=== PATIENT | female | born 1960 | race Caucasian/White ===

== ENCOUNTER → 2016-07-21 | Outpatient (CLI) | payer BC ==
--- NOTE | 2016-07-21 14:14 | MM ---
Reason for exam: additional evaluation requested from prior study. Last mammogram was performed 7 months ago. History: Patient is postmenopausal and has history of other cancer at age 45. Family history of breast cancer in mother at age 62. Reductions of both breasts, November 2006. Physical Findings: Nurse did not find any significant physical abnormalities on exam. MG 3D Diag Mammo W/Cad LT CC and MLO view(s) were taken of the left breast. Prior study comparison: December 17, 2015, bilateral MG 3d diag mammo w/cad CLARISSE. October 02, 2015, left breast MG diagnostic mammo LT w CAD. The breast tissue is heterogeneously dense. This may lower the sensitivity of mammography. There is no discrete abnormality including previous posterior left MLO. No significant new findings when compared with previous films. These results were verbally communicated with the patient and result sheet given to the patient on 07/21/16. ASSESSMENT: Benign, BI-RAD 2 RECOMMENDATION: Routine screening mammogram of both breasts in 5 months. Back on schedule.
== END | disposition home or self-care (01) ==
LOC: RADMAMWWP 12:47
PROVIDERS: ATTEND Obstetrics & Gynecology
DX: R92.8 Other abnormal and inconclusive findings on diagnostic imaging of breast (principal)
CPT/HCPCS: G0206; G0279

== ENCOUNTER → 2017-09-20 | Outpatient (CLI) | payer BC ==
--- NOTE | 2017-09-21 10:10 | MM ---
Reason for exam: screening (asymptomatic). Last mammogram was performed 1 year and 2 months ago. History: Patient is postmenopausal and has history of other cancer at age 45. Family history of breast cancer in mother at age 62. Reductions of both breasts, November 2006. Physical Findings: A clinical breast exam by your physician is recommended on an annual basis and results should be correlated with mammographic findings. MG Screening Mammo w CAD Bilateral CC and MLO view(s) were taken. Prior study comparison: July 21, 2016, left breast MG 3d diag mammo w/cad LT. December 17, 2015, bilateral MG 3d diag mammo w/cad CLARISSE. The breast tissue is heterogeneously dense. This may lower the sensitivity of mammography. There is no discrete abnormality. No significant changes when compared with prior studies. ASSESSMENT: Negative, BI-RAD 1 RECOMMENDATION: Routine screening mammogram of both breasts in 1 year.
== END | disposition home or self-care (01) ==
LOC: RADMAMWWP 16:12
PROVIDERS: ATTEND Obstetrics & Gynecology
DX: Z12.31 Encounter for screening mammogram for malignant neoplasm of breast (principal)
CPT/HCPCS: 77067

== ENCOUNTER → 2018-11-29 | Outpatient (CLI) | payer BC ==
--- NOTE | 2018-12-03 09:21 | MM ---
Reason for exam: screening (asymptomatic). Last mammogram was performed 1 year and 2 months ago. History: Patient is postmenopausal and has history of other cancer at age 45. Family history of breast cancer in mother at age 62. Reductions of both breasts, November 2006. Physical Findings: A clinical breast exam by your physician is recommended on an annual basis and results should be correlated with mammographic findings. MG Screening Mammo w CAD Bilateral CC and MLO view(s) were taken. Prior study comparison: September 20, 2017, bilateral MG screening mammo w CAD. July 21, 2016, left breast MG 3d diag mammo w/cad LT. The breast tissue is heterogeneously dense. This may lower the sensitivity of mammography. Bilateral mammoplasty changes. Nodular asymmetry lateral left breast centrally appears more defined. ASSESSMENT: Incomplete: need additional imaging evaluation, BI-RAD 0 RECOMMENDATION: Special view mammogram of the left breast. (3D) If lesion persists on supplemental views, image directed ultrasound is recommended. [facility] will attempt to contact patient to return for supplemental views and ultrasound if indicated.
== END | disposition home or self-care (01) ==
LOC: RADMAMWWP 07:44
PROVIDERS: ATTEND Obstetrics & Gynecology
DX: Z12.31 Encounter for screening mammogram for malignant neoplasm of breast (principal); Z80.3 Family history of malignant neoplasm of breast
CPT/HCPCS: 77067

== ENCOUNTER → 2018-12-05 | Outpatient (CLI) | payer BC ==
--- NOTE | 2018-12-05 11:00 | MM ---
Reason for exam: additional evaluation requested from abnormal screening. Last mammogram was performed less than 1 month ago. History: Patient is postmenopausal and has history of other cancer at age 45. Family history of breast cancer in mother at age 62. Reductions of both breasts, November 2006. Physical Findings: Nurse did not find any significant physical abnormalities on exam. MG 3D Work Up W/Cad LT Spot compression CC, spot compression MLO, and LM view(s) were taken of the left breast. Prior study comparison: November 29, 2018, bilateral MG screening mammo w CAD. September 20, 2017, bilateral MG screening mammo w CAD. The breast tissue is heterogeneously dense. This may lower the sensitivity of mammography. There is a persistent 5mm mass 1-2 o'clock, 6-7cm from nipple. These results were verbally communicated with the patient and result sheet given to the patient on 12/05/18. ASSESSMENT: Incomplete: need additional imaging evaluation, BI-RAD 0 RECOMMENDATION: Ultrasound of the left breast. (upper outer quadrant)
--- NOTE | 2018-12-05 11:02 | USB ---
Reason for exam: additional evaluation requested from abnormal screening. History: Patient is postmenopausal and has history of other cancer at age 45. Family history of breast cancer in mother at age 62. Reductions of both breasts, November 2006. US Breast Workup Limited LT Left limited breast ultrasound including focal area of concern, retroareolar and axilla demonstrates a 0.4 x 0.5 x 0.3cm mixed, hypoechoic lesion at 1 o'clock, corresponds with mammographic finding, biopsy recommended. These results were verbally communicated with the patient and result sheet given to the patient on 12/05/18. ASSESSMENT: Suspicious, BI-RAD 4 RECOMMENDATION: Ultrasound core biopsy of the left breast. Patient requests information be sent to her physicians and chooses to go to [facility] for her surgical consult and biopsy.
== END | disposition home or self-care (01) ==
LOC: RADMAMWWP 08:52
PROVIDERS: ATTEND Obstetrics & Gynecology
DX: R92.8 Other abnormal and inconclusive findings on diagnostic imaging of breast (principal)
CPT/HCPCS: 77061; 77065

== ENCOUNTER → 2024-01-01 | Outpatient (CLI) | payer BC ==
[2024-01-01 14:05] LABS: INR 0.9 (<1.2); Partial Thromboplastin Time 25.2 sec (22.0-30.0); Prothrombin Time 10.3 sec (10.0-12.5)
[2024-01-01 19:53] LABS: HCT 37.8 % (37.2-46.3); HGB 12.2 g/dL (12.0-15.0); MCH 29.7 pg (27.0-32.0); MCHC 32.3 g/dL (32.0-37.0); Mean Platelet Volume 10.4 FL (9.5-12.2); NRBC Per 100 WBC 0 X 10*3/uL (0.00-0.01); Platelet Count 223 X 10*3/uL (140-440); RBC 4.11 X 10*6/uL (4.10-5.20); RDW 13.2 % (11.5-14.5); WBC 4.07 X 10*3/uL (4.50-10.00)
[2024-01-01 20:01] LABS: ALT 18 U/L (8-44); AST 19 U/L (13-35); Albumin 4.6 g/dL (3.8-4.9); Albumin/Globulin Ratio 2.19 Ratio (1.60-3.17); Alkaline Phosphatase 80 U/L (41-126); Calcium 9.6 mg/dL (8.7-10.3); Carbon Dioxide 24.4 mmol/L (21.6-31.8); Chloride 104 mmol/L (96-109); Globulin 2.1 g/dL (1.6-3.3); Glucose 95 mg/dL (70-110); Potassium 3.9 mmol/L (3.5-5.5); Sodium 141 mmol/L (135-145); Total Bilirubin 0.4 mg/dL (0.3-1.2); Total Protein 6.7 g/dL (6.2-8.2)
== END | disposition home or self-care (01) ==
LOC: LABWHC1 13:16
PROVIDERS: ATTEND Orthopaedic Surgery
DX: Z01.812 Encounter for preprocedural laboratory examination (principal); M16.12 Unilateral primary osteoarthritis, left hip; Z22.322 Carrier or suspected carrier of Methicillin resistant Staphylococcus aureus
CPT/HCPCS: 36415; 80053; 85027; 85610; 85730; 86850; 86900; 86901; 87070

== ENCOUNTER 2024-01-09 05:00 | Inpatient (IN) | payer BC ==
[2024-01-05 11:19] VITALS: BMI 32.1
[2024-01-09] MEDS ORDERED: ACETAMINOPHEN TAB 500 MG TAB ONE (06:42)
[2024-01-09] MEDS ORDERED: DEXAMETHASONE SOD PHOSPHATE 4 MG/ML 1 ML VIAL ONE (06:43)
[2024-01-09] MEDS ORDERED: MIDAZOLAM 2 MG/2 ML VIAL ONE (06:43)
[2024-01-09] MEDS ORDERED: ONDANSETRON 4 MG/2 ML VIAL ONE (06:43)
[2024-01-09] MEDS ORDERED: MELOXICAM 7.5 MG TAB ONE (06:43)
[2024-01-09] MEDS ORDERED: ROPIVACAINE 5 MG/ML 30 ML VIAL ONE ×2 (06:44→07:20)
[2024-01-09] MEDS ORDERED: GABAPENTIN 300 MG CAP ONE (06:46)
[2024-01-09] MEDS ORDERED: TRANEXAMIC 1,000 MG/100ML-NACL PREMIX BAG ONE (07:15)
[2024-01-09] MEDS ORDERED: PROPOFOL 10 MG/ML 20 ML VIAL IV ONE (07:15)
[2024-01-09] MEDS ORDERED: LACTATED RINGERS 1,000 ML BAG ONE (07:20)
[2024-01-09] MEDS ORDERED: ceFAZolin 1,000 MG VIAL ONE ×2 (07:20→16:00)
[2024-01-09] MEDS ORDERED: ceFAZolin 10 GM VIAL IVPB ONE (07:20)
[2024-01-09] MEDS ORDERED: SODIUM CHLORIDE 0.9% 1,000 ML BAG ONE (07:20)
[2024-01-09] MEDS ORDERED: SODIUM CHLORIDE 0.9% 50 ML BAG IV ONE (07:20)
[2024-01-09] MEDS ORDERED: HYDROmorphone 0.5 MG/0.5 ML SYRINGE ONE ×2 (10:15→12:23)
[2024-01-09] MEDS ORDERED: HYDROmorphone 1 MG/ML 1 ML SYRINGE ONE ×4 (14:08→18:58)
[2024-01-09] MEDS ORDERED: SODIUM CHLORIDE 0.9% 50 ML BAG ONE (16:00)
[2024-01-09] MEDS ORDERED: APIXABAN 2.5 MG TABLET ONE (16:00)
[2024-01-09] MEDS ORDERED: HYDROcodone/APAP 7.5-325MG 1 EACH TAB ONE ×4 (16:17→22:18)
[2024-01-10] MEDS ORDERED: HYDROmorphone 0.5 MG/0.5 ML SYRINGE ONE ×2 (00:03)
[2024-01-10] MEDS ORDERED: HYDROmorphone 1 MG/ML 1 ML SYRINGE ONE (05:19)
[2024-01-10] MEDS ORDERED: HYDROcodone/APAP 7.5-325MG 1 EACH TAB ONE ×3 (06:49→12:33)
[2024-01-10] MEDS ORDERED: amLODIPine 10 MG TAB ONE (08:38)
[2024-01-10] MEDS ORDERED: LOSARTAN 25 MG TAB ONE (08:38)
[2024-01-10] MEDS ORDERED: APIXABAN 2.5 MG TABLET ONE (08:39)
[2024-01-10] MEDS ORDERED: amLODIPine 5 MG TAB ONE (08:41)
--- NOTE | 2024-02-07 17:20 | XR ---
EXAMINATION TYPE: XR Hip Limited LT, FL guidance operating room DATE OF EXAM: 02/07/2024 Comparison: None Clinical History: 63-year-old female LEFT HIP ANT TOTAL REPLACEMENT Findings: TOTAL ANT LEFT HIP REPLACEMENT FL TIME 44 SECS, DAP 2.4521 Gycm2 No images submitted.
== END 2024-01-10 12:42 | disposition home or self-care (01) | DRG 470 ==
LOC: OR 05:00 → 4SSUR 05:58
PROVIDERS: ADMIT Orthopaedic Surgery; ATTEND Orthopaedic Surgery
PROC: 3E0T3BZ Introduction of Anesthetic Agent into Peripheral Nerves and Plexi, Percutaneous Approach (ICD-10-PCS; 2024-01-09)
PROC: 0SRB06A Replacement of Left Hip Joint with Oxidized Zirconium on Polyethylene Synthetic Substitute, Uncemented, Open Approach (ICD-10-PCS; principal; 2024-01-09 07:00)
DX: M16.12 Unilateral primary osteoarthritis, left hip (principal); I10 Essential (primary) hypertension; Z87.19 Personal history of other diseases of the digestive system; Z85.3 Personal history of malignant neoplasm of breast; Z86.711 Personal history of pulmonary embolism
CPT/HCPCS: 64447; 73501; 80053; 83735; 85025